=== PATIENT | female | born 1980 | race Hispanic/Latino ===

== ENCOUNTER 2017-02-13 14:39 | Emergency (ER) | payer SELFPAY ==
[~2017-02-13] VITALS: Ht 147.3 cm; Wt 68.0 kg
[~2017-02-13 14:39] MED LIST: MACRODANTIN100 MG OR; NO HOME MEDS; ULTRAM50 M1 PO
[2017-02-13] MEDS ORDERED: PRENATAL MULTI1 CAP PO (15:28)
[2017-02-13] MEDS ORDERED: ZOFRAN ODT4 MG PO (15:28)
[2017-02-13 15:53] LABS: HEMATOCRIT 38.6 % (37.0-47.0); HEMOGLOBIN 12.9 g/dl (12.0-16.0); IMMATURE GRANULOCYTES 0.3 % (0.0-1.0); MEAN CELL VOLUME 83.4 fL CALC (80.0-100.0); MEAN CORPUSCULAR HGB 27.9 pG CALC (26.0-32.0); MEAN CORPUSCULAR HGB CONC 33.4 g/L CALC (32.0-36.0); NEUT# 5.11 thou/uL (2.00-7.15); RED BLOOD COUNT 4.63 mill/uL (4.20-5.60); RED CELL DISTRI WIDTH 14.3 % (11.5-15.5)
[2017-02-13 16:11] LABS: ALBUMIN 4.5 g/dL (3.2-5.0); ALKALINE PHOSPHATASE 65 u/l (38-126); ANION GAP 16 (6-22 (CALC)); BILIRUBIN, TOTAL 0.7 mg/dL (0.0-1.4); BUN 5 mg/dL (7-17); BUN/CREATININE RATIO 10 (12-20 (CALC)); CALCIUM 9.7 mg/dL (8.4-10.2); CARBON DIOXIDE 24 mmol/l (22-30); CHLORIDE 104 mmol/l (95-108); CREATININE 0.5 mg/dL (0.5-1.0); GFR > 60 ML/MIN (>=60 (CALC)); GFR FOR AFR.AMER. > 60 ML/MIN (>=60 (CALC)); GLUCOSE 97 mg/dL (65-105); SGOT/AST 22 u/l (14-36); SGPT/ALT 33 u/l (9-52); SODIUM 140 mmol/l (137-146); TOTAL PROTEIN 8.1 g/dL (6.3-8.2)
[2017-02-13 16:28] VITALS: BP 129/77
== END 2017-02-13 16:40 | disposition home or self-care (01) | DRG 781 ==
LOC: ED 14:39
PROVIDERS: Emergency Medicine
DX: O21.0 Mild hyperemesis gravidarum (principal); Z3A.08 8 weeks gestation of pregnancy